=== PATIENT | female | born 1995 | race Caucasian/White ===

== ENCOUNTER 2023-08-19 13:13 | Emergency (ER) | payer OTHER ==
[2023-08-19 13:33] VITALS: BP 108/67; PULSE 82; RESP 18; TEMP 97.8; BMI 18.8
[2023-08-19 14:34] LABS: HEMATOCRIT 37.3 % (32.4-45.2); MCH 29.3 pg (25.7-33.7); MCHC 32.2 g/dl (32.0-36.0); MEAN PLT VOLUME 8.9 fl (7.5-11.1); PLATELET COUNT 311.6 10^3/uL (134-434); RDW 13.4 % (11.6-15.6); WHITE BLOOD COUNT 7.3 10^3/uL (4.0-10.8)
[2023-08-19 14:49] LABS: ALBUMIN 4.4 g/dl (3.4-5.0); ALK PHOS 47 U/L (45-117); ANION GAP 10 mmol/L (4-13); BILIRUBIN,TOTAL 0.2 mg/dl (0.2-1); CALCIUM 9.6 mg/dl (8.5-10.1); CHLORIDE 103 mmol/L (98-107); CO2 26 mmol/L (21-32); CREATININE 0.6 mg/dl (0.6-1.3); GLUCOSE,RANDOM 113 mg/dl (74-106); POTASSIUM 3.5 mmol/L (3.5-5.1); SGOT/AST 19 U/L (15-37); SGPT/ALT 16 U/L (7-52); SODIUM 139 mmol/L (136-145); TOT PROT 6.9 g/dl (6.4-8.2)
[2023-08-19] MEDS ORDERED: LIDOCAINE 5% TOPICAL PATCH ONE (14:59)
[2023-08-19] MEDS ORDERED: IBUPROFEN 600 MG TABLET (FP) PO ONE (14:59)
[2023-08-19] MEDS: LIDOCAINE 5% TOPICAL PATCH TP ONE (15:04)
[2023-08-19] MEDS: IBUPROFEN 600 MG TABLET (FP) PO ONE (15:04)
[2023-08-19 16:10] LABS: PLATELET ESTIMATE ADEQUATE
[2023-08-19] MEDS ORDERED: LIDOCAINE PATCH REMOVAL MC SCH (22:00)
== END 2023-08-19 16:40 | disposition home or self-care (01) ==
LOC: FER 13:13
DX: S20.212A Contusion of left front wall of thorax, initial encounter (principal); M79.10 Myalgia, unspecified site; W50.1XXA Accidental kick by another person, initial encounter; Y99.0 Civilian activity done for income or pay
CPT/HCPCS: 36415; 71046-TC-FY; 80053; 84703; 85027; 99283-25